=== PATIENT | male | born 1960 | race African-American/Black ===

== ENCOUNTER → 2017-04-24 | Outpatient (CLI) | payer BC, OTHER ==
[~2017-04-24] MED LIST: ANTIVERT25 MG PO; ASPIRIN325 PO; CATAPRES0.2 MG PO; FARXIGA10 MG PO; FLOMAX0.4 MG PO; FUROSEMIDE 40 M40 M1 PO; IBUPROFEN 800800 MG PO; LIPITOR10 MG PO; METFORMIN HCL500 MG PO; NIFEDIPINE20 MG; NORCO 5-325 TA1 EACH PO; POTASSIUM20; PRINIVIL10 MG PO; VENTOLIN HFA 1818 GM INH
== END ==
LOC: RAD 09:31
DX: R05 Cough (principal)

== ENCOUNTER → 2019-01-24 | Outpatient (CLI) | payer BC, OTHER | LOC: CAT 13:02 | DX: K76.0 Fatty (change of) liver, not elsewhere classified (principal); I71.4 Abdominal aortic aneurysm, without rupture; J98.4 Other disorders of lung; K76.89 Other specified diseases of liver; I70.0 Atherosclerosis of aorta; K74.60 Unspecified cirrhosis of liver ==